=== PATIENT | female | born 1990 | race Caucasian/White ===

== ENCOUNTER 2021-06-01 09:45 | Outpatient (CLI) | payer MEDICAID ==
[~2021-06-01] VITALS: Ht 152.4 cm; Wt 79.5 kg
[~2021-06-01 09:45] MED LIST: CEPHALEXIN250 M1 PO; NORCO 325 MG-51 TAB PO; ZOFRAN 4MG T4 MG/TAB PO
--- NOTE | 2021-06-01 09:55 | NUR ---
284445.3, G1L0 ARRIVES AMBULATORY TO UNIT WITH SPOUSE FROM HOME WITH C/O CTX EVERY 4 MIN THAT STARTED AT O630. REPORTS CONTRACTIONS MORE INTENSE OVER LAST 1.5HRS. CHANGES INTO CLEAN GOWN. REPORTS NORMAL MOVEMENT. DENIES ANY LOF OR VB. 1000- EFM EXPLAINED AND PLACED. ASSESSMENT COMPLETED. VS OBTAINED. 1005- SVE 3-4/80/-3, BOWI. PT WEDGE LEFT. PLAN OF CARE DISCUSSED. 1030- DR. AMEZCUA UPDATED ON PT. SEE PHYSICIAN NOTIFICATION. 1038PLAN OF CARE REVIEWED WITH PT AND SO WHO VERBALIZE UNDERSTANDING. FHR CAT I. EFM OFF AND PT AMBULATORY IN HALLS.
[2021-06-01 10:02] VITALS: BP 142/94; PULSE 92; TEMP 98.4
[2021-06-01] MEDS ORDERED: PRENATAL TABLET PO (10:17)
[2021-06-01 10:30] VITALS: BP 137/82; PULSE 85
--- NOTE | 2021-06-01 11:03 | NUR ---
1059PATIENT BACK ON MONITOR AT THIS TIME. PATIENT UPDATED ON PLAN OF CARE. PATIENT REPORTS CTX FEEL TO BE STRONGER AND MORE FREQUENT. PATIENT AGREEABLE TO PLAN OF CARE. WILL PERFORM SVE SHORTLY.
[2021-06-01 11:21] VITALS: BP 130/87; PULSE 82
--- NOTE | 2021-06-01 11:38 | NUR ---
1121PATIENT OFF MONITORS AT THIS TIME TO CHANGE 1130DISCHARGE LABOR INSTRUCTIONS REVIEWED WITH PATIENT AND SPOUSE. BOTH VERBALIZED UNDERSTANDING. PATIENT STATES THAT THEY ARE GOING TO STAY IN TOWN FOR A LITTLE WHILE THEY LIVE 45MIN AWAY. 1132PATIENT LEFT AMBULATORY AND IN APPARENT DISTRESS. ALL PERSONAL BELONGINGS GATHERED FROM ROOM. PATIENT ACCOMPANIED BY SPOUSE.
--- NOTE | 2021-06-01 11:40 | NUR ---
1121PATIENT OFF MONITORS AT THIS TIME TO CHANGE. 1130DISCHARGE LABOR INSTRUCTIONS REVIEWED WITH PATIENT AND SPOUSE. BOTH VERBALIZED UNDERSTANDING. PATIENT STATES THAT THEY ARE GOING TO STAY IN TOWN FOR ALITTLE WHILE SINCE THEY LIVE FARTHER AWAY. 1132ALL PERSONAL BELONINGS GATHERED FROM PATIENT ROOM. PATIENT LEFT AMBULATORY AND IN NO APPARENT DISTRESS. PATIENT ACCOMPANIED BY SPOUSE.
== END 2021-06-01 11:32 | disposition home or self-care (01) ==
LOC: LDRO 09:45
DX: Z3A.40 40 weeks gestation of pregnancy (principal)

== ENCOUNTER 2021-06-01 15:18 | Inpatient (IN) | payer MEDICAID ==
[2021-06-01] VITALS (21 sets, daily range): BP systolic 106–142; BP diastolic 57–91; PULSE 81–122; TEMP 98.2–98.6
[~2021-06-01] VITALS: Ht 160 cm; Wt 79.5 kg
[~2021-06-01 15:18] MED LIST changes: +PRENATAL TABLET PO
--- NOTE | 2021-06-01 15:25 | NUR ---
1525PATIENT UP TO UNIT VIA WHEELCHAIR AT THIS TIME FOR LABOR CHECK. PATIENT IS , 40-3WEEKS BY DATES. PATIENT BREATHING THROUGH CONTRACTIONS. PATIENT TAKEN TO LR 5. PATIENT ACCOMPANIED BY SPOUSE, PETE AND HER MOTHER, REX. PATIENT REPORTS INCREASED PAIN, FREQUENCY, AND STRENGTH OF CONTRACTIONS. GOOD MOVEMENT NOTED. DENIES ROM OR BLEEDING. 1529PATIENT PLACED ON EXTERNAL FHR MONITOR & TOCO AT THIS TIME. VSS. ASSESSMENTS COMPLETED. CTX PALPATING MILD-MODERATE. FHR OBTAINED. 1531SVE BY Bashir MELENDEZ RN /-2. 1532DR SEVEN NOTIFIED OF PATIENT'S ARRIVAL. SEE PHYSICIAN NOTIFICATION FOR MORE DETAIL.
--- NOTE | 2021-06-01 15:50 | NUR ---
[id number] CTX PALPATE MILD-MODERATE. PATIENT BREATHING THROUGH CTX. RATING CTX 7/10 ON PAIN SCALE. 1550PATIENT UP ON BIRTHING BALL. CALL LIGHT WITHIN REACH. PATIENT REPORTS NAUSEA AT THIS TIME AND ASK FOR EMESIS BASIN "JUST IN CASE".
--- NOTE | 2021-06-01 16:52 | NUR ---
1652DR SEVEN NOTIFIED OF CHARI VALDOVINOS. SEE PHYSICIAN NOTIFICATION FOR MORE DETAIL,
--- NOTE | 2021-06-01 17:00 | NUR ---
1629-1647PATIENT UP ON BIRTHING BALL. PATIENT BREATHING THROUGH CTX. CTX PALPATE MODERATE. PATIENT REPORTS FEELING CTX IN LOW BACK. THIS RN EDUCATED ON COUNTERPRESSURE ON LOW BACK. PATIENT AGREEABLE TO TRY. COUNTER PRESSURE APPLIED BY THIS RN ON LOW BACK. PATIENT REPORTS SOME RELIEF. PATIENT'S SPOUSE AND MOTHER ALSO AT BEDSIDE, EDUCATION PROVIDED. BOTH VERBALIZED UNDERSTANDING. 1647PATIENT IN BED WITH LEFT WEDGE.
[2021-06-01 17:14] LABS: BASO % 0.2 % (0.0-2.0); EOS % 0.1 % (0.0-4.0); GRAN # 14.4 K/mm3 (1.4-6.5); GRAN % 82.9 % (42.2-75.2); HEMOGLOBIN 11.8 g/dl (12.5-16.0); LYMPH # 1.9 K/mm3 (1.2-3.4); LYMPH % 10.8 % (20.0-51.0); MEAN CELL VOLUME 84 fl (80.0-100.0); MEAN CORPUSCULAR HEMOGLOBIN 28 pg (27-31); MEAN CORPUSCULAR HGB CONC 33 g/dl (33.0-37.0); MEAN PLATELET VOLUME 10.9 fl (7.4-10.4); MONO % 5.6 % (1.7-9.3); PLATELET COUNT 401 K/mm3 (130-400); RED BLOOD COUNT 4.23 M/mm3 (4.10-5.30); REDCELL DISTRIBUTION WIDTH-CV 13.4 % (11.5-14.5)
[2021-06-01 17:15] LABS: HEMATOCRIT 35.5 % (37.0-47.0)
--- NOTE | 2021-06-01 17:56 | NUR ---
1711IV STARTED IN R FOREARM, LABS OBTAINED WITH IV START. PATIENT TOLERATED WELL. 1714PATIENT UP TO BATHROOM AT THIS TIME. DR AMEZCUA AT BEDSIDE WELL. 1717SVE BY DR AMEZCUA /2, AROM, CLEAR, MODERATE AMOUNT OF FLUID. PATIENT TOLERATED WELL.
--- NOTE | 2021-06-01 18:00 | NUR ---
1703 IV STARTED IN RIGHT FOREARM BY Bashir MELENDEZ RN AT THIS TIME. PATIENT TOLERATED WELL 1706 PATIENT UP TO BATHROOM AT THIS TIME. 1715DR AMEZCUA AT BEDSIDE DISCUSSING AROM. PATIENT AGREEABLE WITH PLAN. 1717 AROM AT THIS TIME, CLEAR, MODERATE AMOUNT OF FLUID. SVE /-[address] AMEZCUA.
--- NOTE | 2021-06-01 18:13 | NUR ---
ELI AMEZCUA AT BEDSIDE TO CHECK ON PATIENT. 1757SVE BY DR AMEZCUA /. PATIENT TOLERATED WELL. DR AMEZCUA STATES THAT SHE WILL BE IN THE OB CALL ROOM IF NEEDED AND WATCHING STRIP.
--- NOTE | 2021-06-01 18:13 | NUR ---
1809REPORT GIVEN TO NICKOLAS RN
--- NOTE | 2021-06-01 19:52 | NUR ---
DR. AMEZCUA AT BEDSIDE. SVE STILL 7-0. PROVIDER GAVE VERBAL ORDERS TO START PITOCIN AND KEEP DOING POSITION CHANGES AND SHE WILL RECHECK IN 1 HOUR.
--- NOTE | 2021-06-01 20:40 | NUR ---
2039- THIS RN TO BEDSIDE TO START PRACTICE PUSHING WITH PATIENT AFTER PROVIDER STATED PATIENT WAS COMPLETE AFTER SVE. 2041- FIRST PRACTICE PUSH. THIS RN COULD FEEL CERVIX ON THE RIGHT SIDE OF PATIENT. DISCUSSED WITH PATIENT ABOUT TURNING TO HER RIGHT SIDE AND WAITING TO RECHECK IN 15-20 MINUTES TO MAKE SURE THE CERVIX WAS GONE. PATIENT VERBALIZED UNDERSTANDING. THIS RN ASSISTED PATIENT INTO RL POSITION WITH LEFT LEG UP IN THE STIRRUP. CALL LIGHT WITHIN REACH.
--- NOTE | 2021-06-01 21:10 | NUR ---
2104- THIS RN TO BEDSIDE FOR SVE CHECK. CAN STILL FEEL A LITTLE CERVIX BUT AM ABLE TO PUSH IT AWAY. 2107- DR. AMEZCUA TO BEDSIDE. DISCUSSED SVE FINDINGS. DR. AMEZCUA PUT ON GLOVES AND STATED SHE COULD REDUCE THE CERVIX OUT OF THE WAY. 2109- PATIENT BEGINS PUSHING WITH PROVIDER. THIS RN REMAINS AT BEDSIDE. 2119- DR. AMEZCUA GIVES VERBAL ORDER TO INCREASE PITOCIN DUE TO CONTRACTIONS SPACING OUT. 2134- BED BROKEN DOWN AND ROOM PREPPED FOR DELIVERY. THIS RN CALLED NURSERY AT THIS TIME. 2143- OF VIABLE FEMALE INFANT. PLACED TO MOTHERS ABDOMEN WHERE NURSERY NURSE ASSUMES CARE. DELAYED CORD CLAMPING PER PATIENT REQUEST. PITOCIN TURNED OFF AT THIS TIME. 2146- OF PLACENTA. PITOCIN TURNED ON PER PROTOCOL AT 333ML/HR. SECOND DEGREE TEAR NOTED BY PROVIDER AND REPAIRED. PROVIDER NOTED 300 EBL. 2199- VITALS STABLE, FUNDUS FIRM WITH SCANT LOCHIA NOTED. PATIENT AND ROOM CLEANED UP AND PUT BACK TOGETHER. NEW CHUX, PERIPAD AND ICEPACK TO PERINEUM. RECOVERY STARTED.
[2021-06-01 23:05] LABS: TRICYCLIC ANTIDEPRESS URINE NEGATIVE
[2021-06-02] VITALS: BP 136/82; PULSE 95
--- NOTE | 2021-06-02 | NUR ---
0000 IV TO INT. EPID CATH REMOVED. ATTEMPTED TO STAND AND WALK BUT LEGS NOT MOBILE. PERICARE DONE IN BED AND TO W/C WITH ASSIST. TO ROOM 207 PER W/C. RYAN WELL.
[2021-06-02 05:00] VITALS: BP 104/50; PULSE 100; TEMP 98
[2021-06-02 07:00] VITALS: BP 117/80; PULSE 98; TEMP 98.1
--- NOTE | 2021-06-02 09:53 | NUR ---
Initial visit attempt; Family resting, Communications Agent left card of congratulations for the of their daughter and information regarding the availability of Spiritual Care at our hospital.
[2021-06-02 11:16] VITALS: BP 112/68; PULSE 92; TEMP 97.9
[2021-06-02 16:50] VITALS: BP 105/65; PULSE 88; TEMP 97.8
[2021-06-02 19:30] VITALS: BP 117/79; PULSE 89; TEMP 98.1
[2021-06-03 07:35] VITALS: BP 124/64; PULSE 85; TEMP 98.1
[2021-06-03] MEDS ORDERED: IBU800 M1 PO (11:42)
== END 2021-06-03 15:25 | disposition home or self-care (01) | DRG 807 ==
LOC: LDRO 15:18 → OB 16:50 → LDR 16:50 → OB 06-02
PROVIDERS: Obstetrics & Gynecology; ADMIT Student in an Organized Health Care Education/Training Program
PROC: 10E0XZZ Delivery of Products of Conception, External Approach (ICD-10-PCS; principal; 2021-06-01)
PROC: 0KQM0ZZ Repair Perineum Muscle, Open Approach (ICD-10-PCS; 2021-06-01)
DX: O99.02 Anemia complicating childbirth (principal); Z37.0 Single live birth; O62.0 Primary inadequate contractions; O70.1 Second degree perineal laceration during delivery; O99.344 Other mental disorders complicating childbirth; F41.9 Anxiety disorder, unspecified; D64.9 Anemia, unspecified; Z3A.40 40 weeks gestation of pregnancy
CPT/HCPCS: J2590; J2795; J7120